=== PATIENT | male | born 1995 | race Caucasian/White ===

== ENCOUNTER 2017-05-10 12:17 | Emergency (ER) | payer BC ==
[2017-05-10 12:41] VITALS: BP 134/67
--- NOTE | 2017-05-10 13:32 | UC ---
Respiratory Complaint HPI - HPI Summary HPI Summary: Sore throat chest tightness no fever left chest wall pain - History of Current Complaint Chief Complaint: UCRespiratory Stated Complaint: CHEST PRESSURE,BLEEDING GUMS,SORE THROAT Time Seen by Provider: 05/10/17 13:20 Hx Obtained From: Patient Onset/Duration: Gradual Onset, Lasting Days - 2, Worse Since - this morning Timing: Constant Severity Initially: Mild Severity Currently: Moderate Pain Intensity: 8 Pain Scale Used: 0-10 Numeric Character: Cough: Nonproductive Aggravating Factors: Deep Breaths Alleviating Factors: Nothing Associated Signs And Symptoms: Positive: Dyspnea, Pleuritic Chest Pain, Hoarseness - Allergies/Home Medications Allergies/Adverse Reactions: Allergies Allergy/AdvReac Type Severity Reaction Status Date / Time No Known Allergies Allergy Verified 05/10/17 12:41 Home Medications: Home Medications Amoxicillin PO (*) [Amoxicillin 500 MG CAP*] 500 mg PO Q12H 05/10/17 [History Confirmed 05/10/17] Pseudoephedrine-Guaifenesin [Mucinex D 60-600 mg] 1 tab PO 05/10/17 [History] PMH/Surg Hx/FS Hx/Imm Hx Previously Healthy: Yes - Add - Surgical History Surgical History: None - Family History Known Family History: Positive: Hypertension - Social History Occupation: Student Lives: Dormitory/Roommates Alcohol Use: Weekly Substance Use Type: None Smoking Status (MU): Never Smoked Tobacco Review of Systems Constitutional: Negative Skin: Negative Eyes: Negative ENT: Sore Throat Respiratory: Shortness Of Breath, Cough Cardiovascular: Negative Gastrointestinal: Negative Genitourinary: Negative Motor: Negative Neurovascular: Negative Musculoskeletal: Arthralgia - left chest wall tenderness Neurological: Negative Psychological: Negative Is Patient Immunocompromised?: No All Other Systems Reviewed And Are Negative: Yes Physical Exam Triage Information Reviewed: Yes Appearance: Well-Appearing, No Pain Distress, Thin Vital Signs: Initial Vital Signs Temp 98 F 05/10/17 12:36 Pulse 95 05/10/17 12:36 Resp 18 05/10/17 12:36 BP 134/67 05/10/17 12:36 Pulse Ox 100 05/10/17 12:36 Vital Signs Reviewed: Yes Eye Exam: Normal Eyes: Positive: Conjunctiva Clear ENT Exam: Normal ENT: Positive: Normal ENT inspection, Hearing grossly normal, Pharyngeal erythema, TMs normal. Negative: Nasal congestion, Nasal drainage, Trismus, Muffled/hoarse voice Dental Exam: Normal Dental: Positive: Bleeding - none obseved on assessment Neck exam: Normal Neck: Positive: Supple, Nontender Respiratory Exam: Normal Respiratory: Positive: Lungs clear, Normal breath sounds, No respiratory distress, No accessory muscle use. Negative: Chest non-tender Cardiovascular Exam: Normal Cardiovascular: Positive: RRR, No Murmur, Pulses Normal, Brisk Capillary Refill Musculoskeletal Exam: Normal Musculoskeletal: Positive: Strength Intact, ROM Intact, No Edema Neurological Exam: Normal Neurological: Positive: Alert, Muscle Tone Normal Psychological Exam: Normal Skin Exam: Normal UC Diagnostic Evaluation - Laboratory O2 Sat by Pulse Oximetry: 100 - Radiology Xray Interpretation: No Acute Changes Radiology Interpretation Completed By: Radiologist Respiratory Course/Dx - Course Course Of Treatment: Discharge planned prepared by sign out provider Andreia Cortez - Differential Dx/Diagnosis Differential Diagnosis/HQI/PQRI: Bronchitis, Laryngitis, Lower Resp Infection, Pneumothorax, Sinusitis Provider Diagnoses: Tonsillitis Discharge - Discharge Plan Condition: Stable Disposition: HOME Patient Education Materials: Upper Respiratory Infection (ED), Tonsillitis (ED) Referrals: Non Staff,Doctor [Primary Care Provider] - Additional Instructions: Take already prescribed medication as directed. Drink plenty of fluids. Recommend gargling with salt water multiple times daily. Try using chloraseptic spray to help soothe throat so you are able to drink. Give medication a few days before seeing improvement. Tylenol/ibuprofen for fever and discomfort of chest wall muscles. Rest and apply heating pad. Eat bland foods when able consisting of toast, bananas, rice and applesauce. Follow up with health center. You will hear about mono results in the next day or two.
--- NOTE | 2017-05-10 14:25 | RAD ---
INDICATION: Shortness of breath, chest pressure, sore throat, cough. Fever. Symptoms for 6 days. COMPARISON: No relevant prior exams available on the [facility] for comparison. TECHNIQUE: Dual energy PA and routine lateral views of the chest were obtained. REPORT: Elevated lung volumes which may reflect obstructive lung disease or exuberant inspiratory effort for examination. Normal variant accessory azygos fissure in the medial RIGHT upper lung zone. No pulmonary infiltrate, suspicious focal pulmonary lesion, pleural effusion, pneumothorax. The heart, pulmonary vasculature, and mediastinal contours are unremarkable. Unremarkable soft tissue contours and osseous structures. IMPRESSION: 1. No evidence for pneumonia. 2. Elevated lung volumes which may reflect obstructive lung disease or exuberant inspiratory effort for examination.
--- NOTE | 2017-05-10 14:28 | PN ---
Progress Note - Progress Note Date of Service: 05/10/17 SOAP: Subjective: [Patient was a sign out from Zoila Knowles pending chest x-ray results. Patient is currently being treated for pharyngitis with PCN and mucinex.] Objective: [Swollen tonsils with some exudate. Rest of exam normal. CTA and RRR. Normal TM , no significant lymphadenopathy. ] Assessment: chest x-ray results: []1. No evidence for pneumonia. 2. Elevated lung volumes which may reflect obstructive lung disease or exuberant inspiratory effort for examination. Plan: No concern for any emergent cardio/respiratory etiology at this time. Appears experiencing chest wall pain from excessive coughing, costochondritis. Patient requested a monospot, was obtained. Pending results. Continue antibiotics, mucinex, fluids and recommended chloraseptic spray and salt water gargles. tylenol/ibuprofen for fever/chills and pain. DX: tonsilitis, URI, costochondritis Discharge: stable, home.]
[2017-05-11 13:43] LABS: EBV Response NO
[2017-05-11 13:59] LABS: Manual Entry Verification CR; Mono Internal Control QC Line Present
== END 2017-05-10 14:52 | disposition home or self-care (01) ==
LOC: UCCORT 12:17
DX: J03.90 Acute tonsillitis, unspecified (principal)
CPT/HCPCS: 36415; 71020; 86308; 99211; G0463